=== PATIENT | male | born 1945 | race Caucasian/White ===

== ENCOUNTER 2018-11-30 09:49 | Emergency (ER) | payer MEDICARE, OTHER ==
[~2018-11-30] VITALS: Ht 175.3 cm; Wt 91.6 kg
[~2018-11-30 09:49] MED LIST: ADULT LOW DOSE81 MG PO; AMITRIPTYLINE H25 M2 GT; AMLODIPINE BESY10 MG PO; CENTRUM SILVER1 EAC1 PO; FISH OIL 1,001000 M2 PO; GABAPENTIN300 MG PO; GLUCOPHAGE1000 MG PO; HUMALOG100 UNIT/1 SQ; LANTUS SC; PRILOSEC 20 MG20 MG PO; VALIUM5 MG PO; ZOCOR 10 MG TAB10 MG PO
[2018-11-30] MEDS ORDERED: LISINOPRIL10 MG PO (10:04)
[2018-11-30] MEDS ORDERED: ZANTAC 150MG T150 MG PO (10:04)
[2018-11-30 10:37] VITALS: BP 148/78
== END 2018-11-30 10:50 | disposition home or self-care (01) ==
LOC: M.ERS 09:49
DX: S01.01XA Laceration without foreign body of scalp, initial encounter (principal); K50.90 Crohn's disease, unspecified, without complications; Z90.49 Acquired absence of other specified parts of digestive tract; Z88.5 Allergy status to narcotic agent; W18.2XXA Fall in (into) shower or empty bathtub, initial encounter; Y93.89 Activity, other specified; Y92.89 Other specified places as the place of occurrence of the external cause; Y99.8 Other external cause status

== ENCOUNTER 2019-07-28 00:50 | Emergency (ER) | payer MEDICARE, OTHER ==
[~2019-07-28] VITALS: Ht 175.3 cm; Wt 95.3 kg
[~2019-07-28 00:50] MED LIST changes: -GABAPENTIN300 MG PO; +LISINOPRIL10 MG PO; +NEURONTIN 300M300 M2 PO; +ZANTAC 150MG T150 MG PO
[2019-07-28] MEDS ORDERED: OMEPRAZOLE 20 M20 M1 PO (01:22)
[2019-07-28] MEDS ORDERED: CRESTOR40 MG PO (01:23)
[2019-07-28] MEDS ORDERED: COZAAR 25 MG TA25 M1 PO (01:29)
[2019-07-28] MEDS ORDERED: NORVASC 2.5 MG2.5 M1 PO (01:29)
[2019-07-28 01:41] LABS: ABSOLUTE LYMPHOCYTES 0.8 thou/uL (0.8-5.3); ABSOLUTE MONOCYTES 0.4 thou/uL (0.0-1.2); ABSOLUTE NEUTROPHILS 3.6 thou/uL (1.6-8.1); BASOPHILS 0.4 %; EOSINOPHILS 0.5 %; HEMATOCRIT 44.2 % (42.0-52.0); HEMOGLOBIN 15.2 gm/dL (14.0-18.0); LYMPHOCYTES 15.8 %; MCH 30.4 pg (26.0-34.0); MCHC 34.3 g/dL (28.0-37.0); MCV 88.7 fL (80.0-100.0); MONOCYTES 9.3 %; MPV 8.5 fl. (7.2-11.1); NUCLEATED RBCS 0 /100WBC; PLATELET COUNT* 156 thou/uL (150-400); RBC 4.99 mil/uL (4.50-6.00); RDW-CV 14.2 % (10.5-14.5); WBC 4.8 thou/uL (4.0-11.0)
[2019-07-28 01:44] LABS: CALCIUM 9.3 mg/dL (8.5-10.1); CREATININE 1.8 mg/dL (0.6-1.3); POTASSIUM 3.9 mmol/L (3.5-5.1)
[2019-07-28 01:48] LABS: ALBUMIN 3.8 g/dL (3.4-5.0); TOTAL BILIRUBIN 0.6 mg/dL (<0.1-1.0); TOTAL PROTEIN 7.3 g/dL (6.4-8.2)
[2019-07-28] MEDS ORDERED: VALIUM5 MG PO (02:58)
[2019-07-28 03:42] VITALS: BP 148/72
== END 2019-07-28 03:42 | disposition left against medical advice (07) ==
LOC: M.ERS 00:50
PROVIDERS: Emergency Medicine Emergency Medical Services
DX: K56.699 Other intestinal obstruction unspecified as to partial versus complete obstruction (principal); Z88.5 Allergy status to narcotic agent; Z88.8 Allergy status to other drugs, medicaments and biological substances; Z90.89 Acquired absence of other organs

== ENCOUNTER 2019-10-05 13:55 | Emergency (ER) | payer MEDICARE, OTHER ==
[~2019-10-05] VITALS: Ht 175.3 cm; Wt 98.0 kg
[~2019-10-05 13:55] MED LIST changes: +COZAAR 25 MG TA25 M1 PO; +CRESTOR40 MG PO; +NORVASC 2.5 MG2.5 M1 PO; +OMEPRAZOLE 20 M20 M1 PO
[2019-10-05] MEDS ORDERED: OMEPRAZOLE 20 M20 M1 (14:25)
[2019-10-05] MEDS ORDERED: AMITRIPTYLINE H50 M3 PO (14:26)
[2019-10-05] MEDS ORDERED: EZALLOR SPRINKL40 MG PO (14:32)
[2019-10-05] MEDS ORDERED: METFORMIN HCL500 MG PO (14:42)
[2019-10-05] MEDS ORDERED: NEURONTIN 300M300 M2 PO (14:42)
[2019-10-05] MEDS ORDERED: NORVASC10 MG PO (14:43)
[2019-10-05] MEDS ORDERED: HUMALOG100 UNIT/1 SUBQ (14:43)
[2019-10-05] MEDS ORDERED: LANTUS SUBQ (14:43)
[2019-10-05] MEDS ORDERED: COZAAR 25 MG TA25 MG PO (14:43)
[2019-10-05 15:59] VITALS: BP 140/75
== END 2019-10-05 15:59 | disposition home or self-care (01) ==
LOC: M.ERS 13:55
DX: S81.811A Laceration without foreign body, right lower leg, initial encounter (principal); K50.90 Crohn's disease, unspecified, without complications; Z90.49 Acquired absence of other specified parts of digestive tract; Z88.6 Allergy status to analgesic agent; Z88.8 Allergy status to other drugs, medicaments and biological substances; W26.8XXA Contact with other sharp object(s), not elsewhere classified, initial encounter; Y93.89 Activity, other specified; Y92.89 Other specified places as the place of occurrence of the external cause; Y99.8 Other external cause status

== ENCOUNTER 2020-01-26 04:26 | Emergency (ER) | payer OTHER ==
[~2020-01-26] VITALS: Ht 175.3 cm; Wt 108.4 kg
[~2020-01-26 04:26] MED LIST changes: +AMITRIPTYLINE H50 M3 PO; +COZAAR 25 MG TA25 MG PO; +EZALLOR SPRINKL40 MG PO; +HUMALOG100 UNIT/1 SUBQ; +LANTUS SUBQ; +METFORMIN HCL500 MG PO; +NORVASC10 MG PO; +OMEPRAZOLE 20 M20 M1
[2020-01-26 04:35] VITALS: BP 174/85
[2020-01-26] MEDS ORDERED: AMOXICILLIN875 MG PO (05:15)
[2020-01-26] MEDS ORDERED: CORTISPORIN OTI10 ML OTIC (05:15)
[2020-01-26] MEDS ORDERED: HYDROCODON-ACE1 EAC7 PO (05:15)
== END 2020-01-26 05:21 | disposition home or self-care (01) ==
LOC: M.ERS 04:26
DX: H60.91 Unspecified otitis externa, right ear (principal); Z88.5 Allergy status to narcotic agent; Z88.8 Allergy status to other drugs, medicaments and biological substances; Z90.89 Acquired absence of other organs

== ENCOUNTER 2020-01-28 13:45 | Emergency (ER) | payer OTHER ==
[~2020-01-28] VITALS: Ht 175.3 cm; Wt 95.3 kg
[~2020-01-28 13:45] MED LIST changes: +AMOXICILLIN875 MG PO; +CORTISPORIN OTI10 ML OTIC; +HYDROCODON-ACE1 EAC7 PO
[2020-01-28] MEDS ORDERED: PERCOCET 5-3251 EACH PO (15:37)
[2020-01-28] MEDS ORDERED: CIPRO500 M1 PO (15:43)
[2020-01-28] MEDS ORDERED: BACTRIM DS TAB1 EACH PO (15:43)
[2020-01-28] MEDS ORDERED: CIPRODEX OTIC7.5 ML OTIC (15:43)
[2020-01-28 15:51] VITALS: BP 169/68
== END 2020-01-28 15:52 | disposition home or self-care (01) ==
LOC: M.ERS 13:45
DX: H66.91 Otitis media, unspecified, right ear (principal); H60.91 Unspecified otitis externa, right ear; Z90.49 Acquired absence of other specified parts of digestive tract; Z88.6 Allergy status to analgesic agent; Z88.8 Allergy status to other drugs, medicaments and biological substances